=== PATIENT | male | born 1965 | race Caucasian/White ===

== ENCOUNTER 2018-05-27 12:16 | Day surgery (SDC) | payer OTHER, SELFPAY ==
--- NOTE | 2018-05-27 | PATH_ITS ---
[facility] Accession Number: [id number] . 01 Material submitted: . PART A: RIGHT COLON POLYP AT 75CM X2 PART B: 70CM COLON POLYPS X2 PART C: RECTAL POLYP . 02 Diagnosis: A. Right Colon Polyps, at 75 cm: Tubular adenoma x1. Small serrated lesion, consistent with early sessile serrated adenoma x1. . B. Colon Polyps,at 70 cm: Fragments of tubular adenoma and fragments of sessile serrated adenoma (two polyps removed). . C. 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 Polyp stalk margin free of invasive adenocarcinoma by 0.3 cm. MRV/06/01/2018 . 02 Comment: Additional sections were examined to make the diagnosis of focal superficially invasive adnocarcinoma. The focus of interest is not present on the deepest levels, so there is no remaining carcinoma to perform immunohistochemical stains for DNA mismatch repair proteins. . Though the lesion appears completely excised, assurance of complete polypectomy, and close clinical follow-up are recommended. . As part of routine qulaity assurance, Dr. Lozano has reviewed part C of this case and agrees with the diagnosis of superficially invasive adenocarcinoma. The findings were reported to Dr. Rodriguez's nurse, [facility], by Dr. Woody Neil on 06/01/2018 at 11:20 a.m. . 02 Electronically signed: . Woody Neil MD, PhD, Pathologist NPI- [id number] . 01 Gross description: . Part A: RIGHT COLON POLYP AT 75CM X2: Received in formalin are multiple fragment(s) of raphael, soft tissue measuring 1.2 x 0.3 x 0.2 cm in aggregate submitted entirely in 1 cassette(s) Part B: 70CM COLON POLYPS X2: Received in formalin are multiple fragment(s) of raphael, soft tissue measuring 1.1 x 0.5 x 0.3 cm in aggregate submitted entirely in 1 cassette(s) Part C: RECTAL POLYP: Received in formalin are multiple fragment(s) of raphael, soft tissue measuring 1.5 x 0.7 x 0.3 cm in aggregate submitted entirely in 1 cassette(s) /CKI /CKI . 02 Pathologist provided ICD-10: C20, D12.6 . 02 CPT . 697544, 819988, 805684 Specimen Comment: A duplicate report has been generated due to demographic updates. Performed at: 01 [facility] [address] [place] [address], [place], [place] [id number] MD Flash Coyne MD Phone: [phone] Performed at: 02 [facility] [address] [place], [place] [id number] MD Moris Lozano MD Phone: [phone]
[2018-05-27] MEDS: SODIUM CHLORIDE 0.9% 1,000 ML 200 ML IV (12:37)
[2018-05-27 12:38] VITALS: BP 134/86; PULSE 62; RESP 16; TEMP 36.6; O2SAT 96; BMI 29.7
--- NOTE | 2018-05-27 13:21 | PM.HP.1 ---
History of Present Illness Date Patient Seen: 05/27/18 Time Patient Seen: 13:21 Chief complaint: [id number] Narrative: 53-year-old male who presents for colorectal screening. He has had no previous examination for such. No family history of colorectal neoplasia. Patient is having no symptoms at this time including nausea, vomiting, loss of appetite, unexplained weight loss, abdominal pain, change in bowel habits, diarrhea, constipation, melena, hematochezia, or bright red blood per rectum. Patient History Medical History Hyperlipidemia (Acute) Hypertension (Acute) No significant past surgical history (Acute) Osteoarthritis (Acute) Family & Social History Family History: Reviewed 05/27/18 by Og Rodriguez MD Social History: household members children Meds Home Medications Medication Instructions Recorded Confirmed Type lisinopril 10 mg PO DAILY 05/27/18 05/27/18 History Review of Systems Review of Systems All systems reviewed & are unremarkable except as noted in HPI and below Exam Vital Signs (past 8 hours): - 05/27/18 12:38 Temperature 97.8 F Pulse Rate 62 Respiratory Rate 16 Blood Pressure 134/86 Pulse Oximetry 96 Oxygen Delivery Method Room Air Narrative Exam Narrative: Well-nourished well-developed male in no acute distress. Alert oriented x3 Sclera nonicteric Regular rate and rhythm Abdomen soft, nondistended, nontender Extremities show no clubbing, cyanosis, or edema Objective Labs Labs: No recent laboratory or radiographic studies for review. Assessment & Plan Plan: Assessment/Plan Narrative: 53-year-old male with need for colorectal screening by age criteria. Colonoscopy is currently recommended. Technical details of the procedure were discussed. Risks, benefits, alternatives were explained. Risks including but not limited to sedation, aspiration, bleeding, pain, missed lesion, incomplete examination, need for further radiographic studies, colonic perforation, need for major abdominal surgery, and all attendant risks of major surgery were explained in detail. All questions were answered to his satisfaction, and he voiced understanding. Consent was placed on the chart. We will proceed as above.
--- NOTE | 2018-05-27 13:25 | PM.PREOP ---
Pre-operative Note Interval Note Pre-op Check: Yes History & Physical Reviewed by Physician, Yes Exam Performed and Yes History & Physical exam performed today by Physician Changes: No H&P completed within 30 days and has changed as indicated here:: 53-year-old male seen and examined today. History and physical examination placed on the chart. Proceed with colonoscopy today as planned. ASA Class (for procedural sedation): II
[2018-05-27] MEDS: fentaNYL 250 MCG/5 ML INJ IV (13:47)
[2018-05-27] MEDS: MIDAZOLAM 5 MG/5 ML VIAL IV (13:47)
--- NOTE | 2018-05-27 14:00 | PM.OP.ENDO ---
Operative Date/Time/Diagnoses Date of procedure: 05/27/18 Time of procedure: 14:00 Pre-op diagnosis: Colorectal screening Post-op diagnosis: other (Multiple colon polyps) Procedure & Clinicians Study performed: 1. Sedation per surgeon 2. Colonoscopy with hot snare polypectomies and cold forceps polypectomies Same procedure as scheduled: Yes Indications: 53-year-old male requiring colorectal screening by age criteria. Colonoscopy is recommended. Surgeon: Og Rodriguez Procedure Notes SCOAP/Timeout: Yes Procedure in detail: After obtaining informed consent, the patient was brought to the GI suite and placed in the left lateral decubitus position on the examination table. After placement of appropriate monitors, the patient was given incremental doses of Versed and Fentanyl until an appropriate level of sedation was achieved. A time out was held per SCOAP protocol. A digital rectal examination was performed and did not reveal any masses or obstructing lesions. The colonoscope was gently passed into the patient's anus and the entire colon navigated to the level of the cecum with minimal difficulty. Once in the cecum, the scope was withdrawn being sure to go before and beyond all mucosal folds and prominences and get an excellent examination. The findings are noted above. At the level of the rectal vault, the scope was retroflexed and the internal anal canal was examined. The scope was straightened and air aspirated from the colon. The instrument was removed from the patient's body and the procedure was concluded. The patient was allowed to awaken from sedation without difficulty and taken to the post-anesthesia care unit in good condition. Scope withdrawal time: 24:50 min Sedation minutes: 32 Findings: polyp Specimen(s): other (1. Colon polyps x2 in the right colon at 75 cm 2. Colon polyps x2 at 70 cm at hepatic flexure marked with Myriam ink 3. Rectal polyp at 12 cm marked with Myriam ink) Complications: none Recommendations: High fiber diet, Will call with biopsy results and Other recommendation (Colonoscopy in 2 years pending biopsy results) Plan for aftercare: 1. Discharge home Follow up: as needed Disposition: PACU
[2018-05-27 14:04] VITALS: BP 111/77; PULSE 65; RESP 27; O2SAT 97
[2018-05-27 14:08] VITALS: BP 115/81; PULSE 64; RESP 25; TEMP 36.7; O2SAT 93
[2018-05-27 14:15] VITALS: BP 131/86; PULSE 62; RESP 12; TEMP 37.6; O2SAT 94
== END 2018-05-27 14:36 | disposition home or self-care (01) ==
PROVIDERS: Visit Provider Surgery
PROC: 0DJD8ZZ Inspection of Lower Intestinal Tract, Via Natural or Artificial Opening Endoscopic (ICD-10-PCS; CPT 45378; principal; 2018-05-27 13:45)
DX: Z12.11 Encounter for screening for malignant neoplasm of colon (principal); E78.5 Hyperlipidemia, unspecified; I10 Essential (primary) hypertension; D12.2 Benign neoplasm of ascending colon; D12.3 Benign neoplasm of transverse colon; K62.1 Rectal polyp; C20 Malignant neoplasm of rectum; D12.6 Benign neoplasm of colon, unspecified
CPT/HCPCS: 45385; 45380; 45381; 99152; 99153; J2250; J3010

== ENCOUNTER 2018-12-24 07:48 | Day surgery (SDC) | payer OTHER, SELFPAY ==
--- NOTE | 2018-12-24 | PATH_ITS ---
[facility] Accession Number: [id number] . 01 Material submitted: . PART A: colon - ASCENDING COLON NEAR CECUM PART B: colon - COLON BIOPSY AT 35CM PART C: rectum - RECTAL BIOPSY OF SCAR . 02 Diagnosis: A. Ascending Colon Near Cecum, Biopsy: Colonic mucosa with no significant diagnostic abnormality. Additional levels were examined. Negative for active, chronic and microscopic colitis. Negative for dysplasia and malignancy. . B. Colon, 35 cm, Biopsy: Tubular adenoma. . C. Rectum, Scar, Biopsy: Rectal mucosa with no diagnostic abnormality. Negative for active inflammation, dysplasia and malignancy. [facility]/12/28/2018 . 02 Electronically signed: . Marla Garibay MD, Pathologist NPI- [id number] . 01 Gross description: . Part A: ASCENDING COLON NEAR CECUM: Received in formalin is 1 fragment(s) of raphael, soft tissue measuring 0.1 x 0.1 x 0.1 cm which is entirely submitted and submitted entirely in 1 cassette(s) Part B: COLON BIOPSY AT 35CM: Received in formalin are 2 fragment(s) of raphael, soft tissue measuring 0.1 x 0.1 x 0.1 cm to 0.3 x 0.2 x 0.2 cm which is entirely submitted and submitted entirely in 1 cassette(s) Part C: RECTAL BIOPSY OF SCAR: Received in formalin are 3 fragment(s) of raphael, soft tissue measuring 0.1 x 0.1 x 0.1 cm to 0.3 x 0.3 x 0.3 cm which is entirely submitted and submitted entirely in 1 cassette(s) /DMC /DMC . 02 Pathologist provided ICD-10: D12.6 . 02 CPT . 777308, 965193, 587787 Performed at: 01 [facility] [address] [place] [address], [place], [place] [id number] MD Flash Coyne MD Phone: [phone] Performed at: 02 [facility] [address] [place], [place] [id number] MD Marla Garibay MD Phone: [phone]
[2018-12-24 08:15] VITALS: BP 141/85; PULSE 62; RESP 16; TEMP 36.8; O2SAT 96
[2018-12-24] MEDS: SODIUM CHLORIDE 0.9% 1,000 ML 200 ML IV (08:18)
--- NOTE | 2018-12-24 08:54 | PM.HP.1 ---
History of Present Illness Date Patient Seen: 12/24/18 Time Patient Seen: 08:55 Chief complaint: [id number] Narrative: Patient is a gentleman had a colonoscopy 6 months ago. He had a cancers polyps in his rectum and several others that were large scattered through the colon. He is here for repeat exam at the recommendation of that physician. Patient History Medical History (Updated 12/24/18 @ 08:57 by Glenn Colby MD) Adenocarcinoma of rectum (Acute) Hyperlipidemia (Acute) Hypertension (Acute) No significant past surgical history (Acute) Osteoarthritis (Acute) Family History Mother Hypertension Sister Hypertension Brother Hypertension Social History (Updated 06/09/18 @ 13:34 by Frances Leal LPN) household members: children occupational status: employed Smoking Status: Never smoker substance use type: does not use Family & Social History Family History Mother Hypertension Sister Hypertension Brother Hypertension Social History: household members children Tobacco & Substance use: Smoking Status Never smoker Meds Home Medications Medication Instructions Recorded Confirmed Type lisinopril 10 mg PO DAILY 05/27/18 12/24/18 History Allergies Allergy/AdvReac Type Severity Reaction Status Date / Time No Known Drug Allergies Allergy Verified 12/24/18 08:16 Review of Systems Review of Systems All systems reviewed & are unremarkable except as noted in HPI and below Exam Vital Signs (past 8 hours): - 12/24/18 08:15 Temperature 98.3 F Pulse Rate 62 Respiratory Rate 16 Blood Pressure 141/85 H Pulse Oximetry 96 Oxygen Delivery Method Room Air Narrative Exam Narrative: Operative in no apparent distress. Lungs are clear no rales or rhonchi. Heart regular rate and rhythm without murmur gallop. Abdomen is soft nontender without mass. Assessment & Plan Assessment & Plan narrative: The patient for a screening colonoscopy. I have discussed the procedure with them. Risks of bleeding, perforation which would necessitate major operation, failure to find remove all lesions, the potential tattoo were all discussed. All questions were answered. They wished to proceed.
--- NOTE | 2018-12-24 09:00 | PM.PREOP ---
Pre-operative Note Interval Note History & Physical reviewed/Exam performed by Physician: Yes Changes to H&P: No ASA Class (for procedural sedation): II
[2018-12-24] MEDS: MIDAZOLAM 5 MG/5 ML VIAL IV (09:19)
[2018-12-24] MEDS: fentaNYL 250 MCG/5 ML INJ IV (09:19)
--- NOTE | 2018-12-24 09:26 | PM.OP.ENDO ---
Operative Date/Time/Diagnoses Date of procedure: 12/24/18 Time of procedure: 09:26 Pre-op diagnosis: History of 1 mm invasive cancer and a rectal polyp stalk. Stock was free of tumor per pathology report. Post-op diagnosis: same (Small polyps in the ascending colon and at 35 cm. Scar in rectum biopsied.) Procedure & Clinicians Study performed: Colonoscopy with cold biopsy Same procedure as scheduled: Yes Indications: History of the a 1 mm invasive lesion in the rectum in a polyp. Here for follow-up examination to confirm complete removal and no recurrence of other polyps. Surgeon: Glenn Colby Procedure Notes SCOAP/Timeout: Performed Procedure in detail: The patient was placed in the left lateral decubitus position and underwent IV sedation directed by the surgeon consisting of fentanyl and Versed. Digital exam was unremarkable. The scope was inserted and advanced through the rectum into the sigmoid, descending, transverse, and ascending colon. Rare diverticulosis was noted and there were areas of tattoo noted. Specifically in the rectum I noted scarring adjacent to the tattoo that was placed there.. The cecum was reached identified by the ileocecal valve and the appendiceal opening. The scope was gradually brought out. Polyps were found at the ascending colon, and 35 cm from the anal verge. These were small and were biopsied to complete removal.. The scope ultimately was retroflexed in the rectum. The appearance was normal. The scope was straightened and I took biopsies of the scar where the rectal polypectomy was performed. The scope was removed the patient tolerated the procedure well. There were no apparent complications. The scope was removed and the patient tolerated the procedure well Scope withdrawal time: 9.5 minutes Sedation minutes: 22 Findings: polyp (Two small polyps) and other findings (Scar in the rectum which was biopsied) Specimen(s): other (Polyps and scar biopsy) Complications: none Recommendations: Colonscopy in 1 year
[2018-12-24 09:31] VITALS: BP 115/75; PULSE 59; O2SAT 97
[2018-12-24 09:36] VITALS: BP 107/75; PULSE 59; RESP 11; O2SAT 96
[2018-12-24 09:43] VITALS: BP 113/68; PULSE 63; RESP 15; TEMP 36.8; O2SAT 93
[2018-12-24 10:01] VITALS: BP 119/73; PULSE 62; RESP 16; TEMP 36.4; O2SAT 94
[2018-12-24 10:13] VITALS: BP 120/70; PULSE 61; RESP 12; TEMP 36.3; O2SAT 95
== END 2018-12-24 10:24 | disposition home or self-care (01) ==
PROVIDERS: PCP Physician Assistant; Visit Provider Specialist
PROC: 0DJD8ZZ Inspection of Lower Intestinal Tract, Via Natural or Artificial Opening Endoscopic (ICD-10-PCS; CPT 45378; principal; 2018-12-24 08:45)
DX: Z85.038 Personal history of other malignant neoplasm of large intestine (principal); D12.6 Benign neoplasm of colon, unspecified; E78.5 Hyperlipidemia, unspecified; I10 Essential (primary) hypertension
CPT/HCPCS: 45380; 99152; J2250; J3010

== ENCOUNTER → 2019-06-01 16:10 | Outpatient (ROUT) | payer OTHER, SELFPAY ==
[2019-06-01 16:17] LABS: Add Manual Diff / Slide Review NO; Basophils Absolute Auto 0 /uL (0-100); Basophils Percent Auto 0.7 % (0-2); Eosinophils Absolute Auto 200 /uL (0-450); Eosinophils Percent Auto 3.6 % (2-4); Hematocrit 48.2 % (41-53); Hemoglobin 16.4 g/dL (13.5-17.5); Lymphocytes Absolute Auto 1400 /uL (1100-4500); Lymphocytes Percent Auto 28.8 % (25-40); Mean Corpuscular Hemoglobin 32.3 PG (26-34); Mean Corpuscular Volume 94.9 fL (80-100); Monocytes Absolute Auto 500 /uL (0-900); Monocytes Percent Auto 9.9 % (3-14); Neutrophils Absolute Auto 2700 /uL (1500-7000); Platelet Count 209 X10^3/uL (150-400); Red Blood Cell Count 5.08 X10^6/uL (4.5-5.9); White Blood Cell Count 4.8 X10^3/uL (4.5-11.0)
[2019-06-01 16:28] LABS: Alanine Aminotransferase 24 IU/L (<50); Albumin 4.1 g/dL (3.5-5.0); Albumin Globulin Ratio 2.1 (1.0-2.8); Alkaline Phosphatase 67 U/L (38-126); Aspartate Aminotransferase 20 IU/L (17-59); BUN Creatinine Ratio 18.8 (6-22); Bilirubin Total 0.3 mg/dL (0.2-1.3); Blood Urea Nitrogen 15 mg/dL (9-20); Calcium 9.6 mg/dL (8.4-10.2); Carbon Dioxide 28 mmol/L (22-32); Chloride 104 mmol/L (98-107); Estimated Glomerular Filt Rate > 60.0 mL/min (>60); Glucose 95 mg/dL (70-100); HEMOLYSIS < 15 (0-50); Potassium 4.1 mmol/L (3.4-5.1); Sodium 140 mmol/L (137-145); Total Protein 6.1 g/dL (6.3-8.2)
[2019-06-01 17:21] LABS: Cholesterol 200 mg/dL (140-199); HDL Cholesterol 38 mg/dL (40-60); LDL Cholesterol Calculated 123 mg/dL (<100); Triglycerides 194 mg/dL (35-150)
== END ==
PROVIDERS: PCP Physician Assistant; Visit Provider Physician Assistant
DX: I10 Essential (primary) hypertension (principal); E78.00 Pure hypercholesterolemia, unspecified
CPT/HCPCS: 80053; 80061; 85025

== ENCOUNTER → 2020-03-17 13:36 | Outpatient (ROUT) | payer OTHER, SELFPAY ==
[2020-03-18 19:14] LABS: COVID19 Sendout Not Detected (Not Detect)
== END ==
PROVIDERS: PCP Physician Assistant; Visit Provider Nurse Practitioner
DX: Z11.59 Encounter for screening for other viral diseases (principal)
CPT/HCPCS: 87635

== ENCOUNTER 2020-03-20 07:34 | Day surgery (SDC) | payer OTHER, SELFPAY ==
[2020-03-20] VITALS (8 sets, daily range): BP systolic 113–149; BP diastolic 77–92; PULSE 55–67; RESP 11–18; TEMP 36.5–37.1; O2SAT 91–99; BMI 30.7
--- NOTE | 2020-03-20 | PATH_ITS ---
[facility] Accession Number: [id number] . 01 Material submitted: . colon - 75 CM COLON POLYP X2 . 01 Clinical history: . SDC . 02 Diagnosis: 75 cm Colon Polyp x2: Portion of tubular adenoma x1. Portions of serrated lesion x2, cannot completely exclude sessile serrated adenoma. Superficial portion of colorectal mucosa x1 with no significant histomorphologic abnormality. MRV 03/22/2020 1354 Local . 02 Electronically signed: . Ebonie Duncan MD, Pathologist NPI- [id number] . 01 Gross description: . 75 CM COLON POLYP X2: Received in formalin are 4 fragment(s) of raphael, soft tissue measuring 0.1 x 0.1 x 0.1 cm to 0.5 x 0.3 x 0.2 cm submitted entirely in 1 cassette(s) /MJ 03/21/2020 0141 Local . 02 Pathologist provided ICD-10: K63.5, Z86.010 . 02 CPT . 499937 Performed at: 01 [facility] [address] [facility], [place], [place] [id number] MD Flash Coyne MD Phone: [phone] Performed at: 02 [facility] [address] [place], [place] [id number] MD Marla Garibay MD Phone: [phone]
--- NOTE | 2020-03-20 08:41 | P.HP_ITS ---
History of Present Illness History of Present Illness Date Patient Seen: 03/20/20 Time Patient Seen: 08:25 Chief complaint: SDC Narrative: The patient is a gentleman who is 1 year out from his last colonoscopy. He had a very small adenocarcinoma in the rectum incidentally found in a polyp. It was not invasive apparently and was completely removed. He has had multiple polyps removed as well. He is here for a colonoscopy due to his history and the multiple polyps he has had removed. Patient History Medical History Adenocarcinoma of rectum (Acute) Hyperlipidemia (Acute) Hypertension (Acute) Osteoarthritis (Acute) Surgical History No significant past surgical history (Acute) Family & Social History Family History Mother Hypertension Sister Hypertension Brother Hypertension Social History: household members children Tobacco & Substance use: Smoking Status Never smoker alcohol intake frequency a few times a week Substance Use Type does not use Meds Home Medications and Allergies Home Medications Medication Instructions Recorded Confirmed Type lisinopril 20 mg PO DAILY 03/20/20 03/20/20 History Allergies Allergy/AdvReac Type Severity Reaction Status Date / Time shrimp and crab Allergy Swelling Uncoded 03/20/20 07:58 of Lip/Tongue/Throat Review of Systems Review of Systems ROS: Yes All systems reviewed with the patient and are negative except as ot herwise documented Exam Vital Signs (past 8 hours): - 03/20/20 08:00 Temperature 97.7 F Pulse Rate 55 L Respiratory Rate 16 Blood Pressure 149/92 H Pulse Oximetry 99 Oxygen Delivery Method Room Air Narrative Exam Narrative: Pleasant cooperative patient no apparent distress. Lungs are clear to auscultation. No rales or rhonchi. Heart regular rate and rhythm no murmur gallop. Abdomen is soft nontender without mass. No obvious hernias. Patient is alert and oriented x3. Assessment & Plan Assessment & Plan narrative: The patient for a screening colonoscopy. I have discussed the procedure with them. Risks of bleeding, perforation which would necessitate major operation, failure to find remove all lesions, the potential tattoo were all discussed. All questions were answered. They wished to proceed.
--- NOTE | 2020-03-20 08:44 | PM.PREOP ---
Pre-operative Note COVID-19 COVID-19 status: Negative Result date/Date tested (Pos, Neg/Pending): 03/17/20 Interval Note History & Physical reviewed/Exam performed by Physician: Yes Changes to H&P: No ASA Class (for procedural sedation): I
[2020-03-20] MEDS: fentaNYL 250 MCG/5 ML INJ IV (08:53)
[2020-03-20] MEDS: MIDAZOLAM 5 MG/5 ML VIAL IV (08:54)
--- NOTE | 2020-03-20 08:59 | SUR.OPER ---
Patients oxygen sats low 80's on Dr Colby placed nasal airway, oxygen increased to 6L. Continued to need verbal stimulation and jaw thrust. Oxygen stats returned to mid to upper 90's, Dr Colby able to proceed with procedure.
--- NOTE | 2020-03-20 09:19 | PM.OP.ENDO ---
Operative Date/Time/Diagnoses Date of procedure: 03/20/20 Time of procedure: 09:19 Pre-op diagnosis: History adenocarcinoma in a polyp found in the rectum. Post-op diagnosis: same Procedure & Clinicians Study performed: Colonoscopy with cold biopsy Same procedure as scheduled: Yes Indications: Surveillance Surgeon: Glenn Colby Procedure Notes SCOAP/Timeout: Performed Procedure in detail: The patient was placed in the left lateral decubitus position and underwent IV sedation directed by the surgeon consisting of fentanyl and Versed. Digital exam was unremarkable. Prostate was normal. No masses felt.. The scope was inserted and advanced through the rectum into the sigmoid, descending, transverse, and ascending colon. A small lesion was seen in what was thought to be the transverse colon was biopsied and removed.. The cecum was reached identified by the ileocecal valve and the appendiceal opening. The scope was gradually brought out. An additional Polyp was found at 75 cm. The biopsy site of the 1st polyp was just distal to this though both polyps were placed in the same container.. The scope ultimately was retroflexed in the rectum. The appearance was normal. Going in and out I noted multiple sites of tattooing. I carefully examined those regions but did not see any polyps abdomen. The injection in the rectum had a scar adjacent to it which is the presumptive site of the rectal polypectomy that had an incidental tiny adenocarcinoma in it. The scope was removed and the patient tolerated the procedure well. The prep was good. Scope withdrawal time: 9 minutes(10 minutes total) Sedation minutes: 25 Findings: polyp (Two small polyps) Specimen(s): other (Polyp) Complications: none Post-procedure Recommendations: Other recommendation (Colonoscopy in 2 years) Follow up: as needed Disposition: PACU
== END 2020-03-20 10:10 | disposition home or self-care (01) ==
PROVIDERS: PCP Physician Assistant; Referring Provider Physician Assistant; Visit Provider Specialist
PROC: 0DJD8ZZ Inspection of Lower Intestinal Tract, Via Natural or Artificial Opening Endoscopic (ICD-10-PCS; CPT 45378; principal; 2020-03-20 08:45)
DX: Z12.11 Encounter for screening for malignant neoplasm of colon (principal); Z85.048 Personal history of other malignant neoplasm of rectum, rectosigmoid junction, and anus; E78.5 Hyperlipidemia, unspecified; I10 Essential (primary) hypertension; D12.6 Benign neoplasm of colon, unspecified
CPT/HCPCS: 45380; 99152; J2250; J3010

== ENCOUNTER → 2020-07-05 19:27 | Outpatient (ROUT) | payer OTHER, SELFPAY ==
[2020-07-05 19:34] LABS: Add Manual Diff / Slide Review NO; Basophils Absolute Auto 0 /uL (0-100); Basophils Percent Auto 0.7 % (0-2); Eosinophils Absolute Auto 200 /uL (0-450); Eosinophils Percent Auto 3.5 % (2-4); Hematocrit 46.4 % (41-53); Hemoglobin 15.9 g/dL (13.5-17.5); Lymphocytes Absolute Auto 1700 /uL (1100-4500); Lymphocytes Percent Auto 31.9 % (25-40); Mean Corpuscular HGB Conc 34.3 % (30-36); Mean Corpuscular Hemoglobin 32.1 PG (26-34); Mean Corpuscular Volume 93.5 fL (80-100); Monocytes Absolute Auto 500 /uL (0-900); Monocytes Percent Auto 9.8 % (3-14); Neutrophils Absolute Auto 2900 /uL (1500-7000); Neutrophils Percent Auto 54.1 % (50-75); Platelet Count 233 X10^3/uL (150-400); Red Blood Cell Count 4.96 X10^6/uL (4.5-5.9); Red Cell Distribution Width 12.5 % (11.6-14.8); White Blood Cell Count 5.4 X10^3/uL (4.5-11.0)
[2020-07-05 19:44] LABS: Alanine Aminotransferase 23 IU/L (<50); Albumin 3.9 g/dL (3.5-5.0); Albumin Globulin Ratio 1.6 (1.0-2.8); Alkaline Phosphatase 62 U/L (38-126); Aspartate Aminotransferase 20 IU/L (17-59); BUN Creatinine Ratio 13.8 (6-22); Bilirubin Total 0.4 mg/dL (0.2-1.3); Blood Urea Nitrogen 12 mg/dL (9-20); Calcium 9.5 mg/dL (8.4-10.2); Carbon Dioxide 33 mmol/L (22-32); Chloride 102 mmol/L (98-107); Cholesterol 223 mg/dL (140-199); Estimated Glomerular Filt Rate > 60.0 mL/min (>60); Globulin 2.5 g/dL (1.7-4.1); Glucose 92 mg/dL (70-100); HDL Cholesterol 36 mg/dL (40-60); HEMOLYSIS < 15 (0-50); Sodium 137 mmol/L (137-145); Total Protein 6.4 g/dL (6.3-8.2)
[2020-07-05 19:52] LABS: Triglycerides 602 mg/dL (35-150)
== END ==
PROVIDERS: PCP Physician Assistant; Visit Provider Physician Assistant
DX: E78.2 Mixed hyperlipidemia (principal); I10 Essential (primary) hypertension
CPT/HCPCS: 80053; 80061; 85025

== ENCOUNTER → 2020-11-20 08:55 | Outpatient (CLI) | payer OTHER, SELFPAY ==
--- NOTE | 2020-11-20 | DI.RAD.S_ITS ---
PROCEDURE: FL BARIUM SWALLOW W SPEECH INDICATIONS: dysphagia, unspecified COMPARISON: None. TECHNIQUE: Examination was conducted in conjunction with speech pathology per standard protocol. In the lateral projection, filming was performed of the patient swallowing. AP projection filming may also be performed with patient swallowing. COMPARISON: FINDINGS: Function: The oral preparatory phase appears normal, with proper containment. The subsequent oral propulsive phase, pharyngeal phase, and esophageal phase of swallowing also appear normal with all proffered substances. No laryngotracheal penetration or aspiration. No pathologic vallecular pooling. Morphology: No cricopharyngeal bar is identified. No cervical esophageal webs. No Zenker's diverticulum. No strictures. IMPRESSION: Normal swallowing evaluation with speech therapy specialist, no penetration or aspiration seen. Please also refer to the dedicated speech therapy report, which will be independently generated. Dictated by: Wayne Ferrell M.D. on 11/20/2020 at 10:43 Approved by: Wayne Ferrell M.D. on 11/20/2020 at 10:44
--- NOTE | 2020-11-20 16:22 | ST.SWALLOW ---
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 Pt reported discomfort with swallowing. he stated he notices the difficulty with dry foods, cooked vegetables. He described needing to drink several glasses of liquids with each meal in order to get foods to empty into the stomach. He also reported a burning sensation in the area of his sternum to Ms Mathias. He was placed on Omneprozol, which he described as eliminating the burning within the first day of taking it. Relative to his swallowing, he reported that he will cough with water every time he drinks it. He also noted that there have been times during which he regurgitates undigested foods. Subjective Observations pt was seated in the fluoroscopy chair. Instructions and procedures were described for the pt who indicated he understood and agreed to proceed. Patient Positioning Position View Lateral Imaging Lateral View Textures Administered Trials Presented Thin Liquid via Spoon,Thin Liquid via Cup,Pudding Thick Liquid via Spoon,Regular Textures,Barium Tablet Oral Phase Source: MBSIMP (TM) (C) Bolus Specific Scoring Grid Lip Closure No Impairment (WNL) Tongue Control During Bolus Hold No Impairment (WNL) Bolus Prep/Mastication No Impairment (WNL) Bolus Transport/Lingual Motion No Impairment (WNL) A/P Lingual Propulsion Delay No Oral Residue WFL Residue Clearing WFL Nasal Regurgitation No Additional Oral Phase Observations OM examination indicated natural dentition in good hygiene, ROM and strength were WNL for mastication Pharyngeal Phase Source: MBSIMP (TM) (C) Bolus Specific Scoring Grid Delayed Initiation of Pharyngeal Swallow No Soft Palate Elevation No Impairment (WNL) Tongue Base Strength/Range of Motion Minimal Impairment Residue Along the Tongue Base Yes: trace to minimal; cleared with subsequent swallows Clearance of Residue Along Tongue Base No Impairment (WNL) Laryngeal Elevation WFL Anterior Hyoid Movement Mild Impairment Epiglottic Range of Motion Mild Impairment Vallecular Residue Yes: trace to minimal; cleared with subsequent swallows Clearance of Vallecular Residue Minimal Impairment Laryngeal Vestibular Closure Mild Impairment Pharyngeal Stripping Wave Minimal Impairment Posterior Pharyngeal Wall Residue Yes: trace to minimal; cleared with subsequent swallows Clearance of Posterior Pharyngeal Wall WFL Residue Upper Esophageal Sphincter Opening WFL Residue in the Pyriform Sinuses Yes: trace to minimal cleared with subsequent swallows Clearance of Residue in the Pyriform Minimal Impairment Sinuses Esophageal Clearance Upright Position WFL Pharyngoesophageal Backflow Observed No Additional Pharyngeal Phase Observations Pt presented with mild reduction in hyolaryngeal elevation. This effected the inversion of the epiglottis and the laryngeal seal. With liquid trials, there was flash penetration observed with teaspoons (2/3). With the small bolus size, the epiglottis did not invert; rather it was against the posterior pharyngeal wall at a 90 degree angle, folded with the tip pointing upward. With larger swallows (i.e., cup sip and consecutive swallows x3), flash penetration was observed while swallowing contrast residue after the swallows. Pooling was observed in the tongue base, valeculla, pyriform sinuses, sub-valeculla space across all trials. Pooling was cleared following subsequent swallows. Pt did cough x1 with a water rinse of the pharynx before the tablet trial. Approximately half way through the MBSS, the pt remarked that he would like to have something to wash down the pressure in his sternal area. This may suggest something in the upper esophagus that would need to be followed up on with GI referral. A/P View Clinical Impressions Dysphagia Type Very mild pharyngeal dysphagia ; primarily with small bolus size/epiglottis Findings With the small bolus size, the epiglottis did not invert; rather it was against the posterior pharyngeal wall at a 90 degree angle, folded with the tip pointing upward. Patient Appropriate for Therapy Yes: 1-3 sessions recommended for pt education/strategy development Recommendations
== END ==
PROVIDERS: PCP Physician Assistant; Referring Provider Physician Assistant; Visit Provider Physician Assistant
DX: R13.10 Dysphagia, unspecified (principal)
CPT/HCPCS: 74230; 92611

== ENCOUNTER → 2022-02-26 09:48 | Outpatient (CLI) | payer OTHER, SELFPAY ==
[2022-02-26 11:52] LABS: COVID19 -Nasal RAPID Negative (Negative)
== END ==
PROVIDERS: PCP Physician Assistant; Visit Provider Surgery
DX: Z01.812 Encounter for preprocedural laboratory examination (principal); Z20.822 Contact with and (suspected) exposure to COVID-19
CPT/HCPCS: 87635; C9803

== ENCOUNTER 2022-02-27 13:48 | Day surgery (SDC) | payer OTHER, SELFPAY ==
--- NOTE | 2022-02-27 | PATH_ITS ---
[facility] Accession Number: [id number] . 01 Material submitted: . PART A: colon - TRANSVERSE COLON POLYPS PART B: rectum - RECTAL POLYPS . 01 Diagnosis: A. Transverse Colon, Polyps, Biopsies: Serrated lesion, favor sessile serrated adenomas. . B. Rectum, Polyps, Biopsies: Hyperplastic polyps. MRV 03/03/2022 1338 Local . 01 Electronically signed: . Marla Garibay MD, Pathologist NPI- [id number] . 01 Gross description: . Part A: TRANSVERSE COLON POLYPS: Received in formalin are 2 fragment(s) of raphael, soft tissue measuring 0.5 x 0.1 x 0.1 cm to 0.3 x 0.1 x 0.1 cm submitted entirely in 1 cassette(s) Part B: RECTAL POLYPS: Received in formalin are 2 fragment(s) of raphael, soft tissue measuring 0.3 x 0.1 x 0.1 cm to 0.3 x 0.1 x 0.1 cm submitted entirely in 1 cassette(s) /CPE 02/28/2022 0914 Local . 01 Pathologist provided ICD-10: D12.3 . 01 CPT . 164935, 330772 Specimen Comment: A courtesy copy of this report has been sent to [phone] Performed at: 01 [facility] [address] [place] [address], [place], [place] [id number] MD Flash Coyne MD Phone: [phone]
[2022-02-27 14:11] VITALS: BP 149/90; PULSE 64; RESP 16; TEMP 36.4; O2SAT 96; BMI 31.4
[2022-02-27] MEDS: LACTATED RINGERS 1,000 ML 42 ML IV (14:17)
--- NOTE | 2022-02-27 15:36 | PM.HP.1 ---
History of Present Illness History of Present Illness Date Patient Seen: 02/27/22 Time Patient Seen: 15:36 Chief complaint: SCREENING COLONOSCOPY Narrative: Senthil is a 56-year-old man who had a colonoscopy a few years ago where rectal polyp was resected that had a small focus of adenocarcinoma within the polyp he is had colonoscopies since then most recently 2 years ago with only findings of small tubular adenomas Patient History Medical History (Updated 02/27/22 @ 15:37 by Senthil Archibald MD) Adenocarcinoma of rectum Hyperlipidemia Hypertension Osteoarthritis Surgical History No significant past surgical history Family & Social History Family History Mother Hypertension Sister Hypertension Brother Hypertension Social History: household members children Tobacco & Substance use: Smoking Status Never smoker alcohol intake current alcohol intake frequency a few times a week Substance Use Type does not use Meds Home Medications and Allergies Home Medications Medication Instructions Recorded Confirmed Type lisinopril 20 mg tablet 20 mg PO DAILY 03/20/20 02/27/22 History sodium sul 1.479 gram-potas ch See Rx Instructions PO PER PKG DIR 02/14/22 Rx 0.188 gram-magnes sul 0.225 gram #24 tabs tablet (Sutab) Allergies Allergy/AdvReac Type Severity Reaction Status Date / Time shrimp and crab Allergy Swelling Uncoded 02/27/22 14:16 of Lip/Tongue/Throat Exam Vital Signs (past 8 hours): - 02/27/22 14:11 Temperature 97.6 F Pulse Rate 64 Respiratory Rate 16 Blood Pressure 149/90 H Pulse Oximetry 96 Oxygen Delivery Method Room Air Oxygen Delivery Method Room Air Const General: healthy appearing Resp Effort & Inspection: normal respiratory effort Assessment & Plan Assessment and plan (1) History of colorectal cancer: Status: Acute Plan Reviewed the risks and benefits of colonoscopy and he would like to proceed. Time Spent With Patient Critical Care time: I spent a total of [] minutes of critical care time on this patient's care today; this time is exclusive of procedural time.
[2022-02-27] MEDS: fentaNYL 250 MCG/5 ML INJ 125 MCG IV (15:41)
[2022-02-27] MEDS: MIDAZOLAM 5 MG/5 ML VIAL 7 MG IV (15:41)
--- NOTE | 2022-02-27 16:09 | PM.OP.COLON ---
Operative Date/Time/Diagnoses Date of procedure: 02/27/22 Time of procedure: 16:09 Pre-op diagnosis: Personal history of adenocarcinoma within a rectal polyp Post-op diagnosis: same Procedure & Clinicians Study performed: Colonoscopy Same procedure as scheduled: Yes Surgeon: Senthil Archibald Procedure Notes Procedure in detail: Surgeon: Senthil Archibald MD Procedure: The patient was brought to the endoscopy suite, placed in left lateral decubitus position. The patient was connected to monitoring devices. A time-out was performed. Sedation was administered. Once the patient was adequately sedated, a digital rectal exam was performed and was normal. The scope was then inserted and advanced to the cecum where the appendiceal orifice was identified and photographed. The scope was then slowly withdrawn over greater than 6 minutes. There was an area tattoo ink in the proximal transverse colon but no polyps were noted there. There were was a 6 mm polyp in the midtransverse colon removed with a cold snare and another 6 mm polyp in the distal transverse colon removed with cold snare and they were sent together. The tattoo ink in the rectum was visible but there was no evidence of recurrence of the polyp there. There were 2 small polyps in the rectum most likely hyperplastic polyps both removed with cold forceps. The scope was retroflexed in the rectum. No abnormalities were noted. The scope was straightened and removed. The patient was awakened and brought to recovery. Versed: 6 mg Fentanyl: 125 mcg EBL: 5 mL Findings: No evidence for recurrent polyps near the old tattoo ink, 2 6 mm polyps in the transverse colon and 2 3 mm polyps in the rectum that were not near the tattoo ink Scope withdrawal time: 14 Sedation minutes: 25 Post-procedure Recommendations: Will call with biopsy results Disposition: PACU
[2022-02-27 16:13] VITALS: BP 120/80; PULSE 86; RESP 14; TEMP 36.6; O2SAT 94
[2022-02-27 16:18] VITALS: BP 152/95; PULSE 76; RESP 16; O2SAT 95
[2022-02-27 16:23] VITALS: BP 157/108; PULSE 72; RESP 16; O2SAT 96
[2022-02-27 16:30] VITALS: BP 146/102; PULSE 65; RESP 16; O2SAT 96
--- NOTE | 2022-02-27 16:37 | SUR.PHASEII ---
Pt A&Ox4 denies any distress, VSS bp elevated will take HTN medication when gets home, and ready to discharge home. Discharge instructions reviewed with patient and time allowed for questions. IV DC'd intact, dressing applied. Pt left unit via w/c with all personal belongings to ER entrance to meet daughter who will transport pt home.
== END 2022-02-27 16:40 | disposition home or self-care (01) ==
PROVIDERS: PCP Physician Assistant; Referring Provider Surgery; Visit Provider Surgery
PROC: 0DJD8ZZ Inspection of Lower Intestinal Tract, Via Natural or Artificial Opening Endoscopic (ICD-10-PCS; CPT 45378; principal; 2022-02-27 15:30)
DX: Z12.11 Encounter for screening for malignant neoplasm of colon (principal); Z86.010 Personal history of colon polyps; Z85.048 Personal history of other malignant neoplasm of rectum, rectosigmoid junction, and anus; D12.3 Benign neoplasm of transverse colon; K62.1 Rectal polyp
CPT/HCPCS: 45385; 45380; 99152; 99153; J2250; J3010